=== PATIENT | male | born 1990 | race Caucasian/White ===

== ENCOUNTER 2023-01-09 16:23 | Outpatient (CLI) | payer OTHER, SELFPAY | END 2023-01-09 16:24 | disposition home or self-care (01) | PROVIDERS: Visit Provider Physician Assistant | DX: R30.0 Dysuria (principal); Z11.3 Encounter for screening for infections with a predominantly sexual mode of transmission; Z71.1 Person with feared health complaint in whom no diagnosis is made | CPT/HCPCS: 86703; 86706; 86803; 87340; 87491; 87591 ==

== ENCOUNTER 2024-01-28 16:42 | Outpatient (CLI) | payer OTHER, SELFPAY | END 2024-01-28 16:43 | disposition home or self-care (01) | LOC: NFLDREF 01-30 10:45 | PROVIDERS: Visit Provider Physician Assistant | DX: Z11.3 Encounter for screening for infections with a predominantly sexual mode of transmission (principal) | CPT/HCPCS: 87491; 87591 ==

== ENCOUNTER 2024-03-27 11:06 | Outpatient (CLI) | payer OTHER, SELFPAY | END 2024-03-27 11:07 | disposition home or self-care (01) | LOC: NFLDREF 03-28 16:24 | PROVIDERS: PCP Family Medicine; Visit Provider Family Medicine | DX: B36.0 Pityriasis versicolor (principal); Z13.220 Encounter for screening for lipoid disorders | CPT/HCPCS: 80061 ==

== ENCOUNTER 2024-08-21 15:29 | Outpatient (CLI) | payer OTHER, SELFPAY ==
[2024-08-21 23:27] LABS: Chlamydia DNA Amplified* NOT DETECTED (No Detected); GC DNA Amplified* NOT DETECTED (No Detected)
== END 2024-08-21 15:30 | disposition home or self-care (01) ==
PROVIDERS: PCP Family Medicine; Visit Provider Nurse Practitioner Family
DX: Z11.3 Encounter for screening for infections with a predominantly sexual mode of transmission (principal)
CPT/HCPCS: 86592; 86703; 86706; 86803; 87340; 87491; 87529; 87591